=== PATIENT | male | born 1990 | race African-American/Black ===

== ENCOUNTER 2017-06-29 23:03 | Emergency (ER) | payer BC ==
[~2017-06-29] VITALS: Ht 200.7 cm; Wt 108.6 kg
[2017-06-29 23:52] LABS: BASOPHILS % (AUTO) 0.3 % (0-1); EOSINOPHILS # (AUTO) 0.2 X10'3 (0-0.9); EOSINOPHILS % (AUTO) 3.6 % (0-6); HEMATOCRIT 43.4 % (42.0-52.0); HEMOGLOBIN 14.8 g/dl (14.0-17.9); LYMPHOCYTES # (AUTO) 2.2 X10'3 (1.1-4.8); LYMPHOCYTES % (AUTO) 38.4 % (21-51); MEAN CORPUSCULAR VOLUME 97.1 FL (78-98); MEAN PLATELET VOLUME 8.9 FL (7.4-10.4); MONOCYTES # (AUTO) 0.5 X10'3 (0-0.9); MONOCYTES % (AUTO) 7.9 % (2-12); NEUTROPHILS # (AUTO) 2.9 X10'3 (1.8-7.7); NEUTROPHILS % (AUTO) 49.8 % (42-75); PLATELET COUNT 168 X10'3 (140-440); RED BLOOD COUNT 4.47 X10'6 (4.70-6.10); RED CELL DISTRIBUTION WIDTH 12.6 % (11.5-14.5); WHITE BLOOD COUNT 5.7 X10'3 (4.5-11.0)
[2017-06-30 00:04] LABS: PARTIAL THROMBOPLASTIN TIME 27 SECONDS (22-32); PROTHROMBIN TIME 10.5 SECONDS (9.0-12.0)
[2017-06-30 00:08] LABS: ALANINE AMINOTRANSFERASE 36 U/L (12-78); ALBUMIN/GLOBULIN RATIO 1.3 (1.1-1.5); ALKALINE PHOSPHATASE 114 IU/L (46-116); ANION GAP 5 (8-16); ASPARTATE AMINO TRANSFERASE 16 U/L (10-37); BILIRUBIN,TOTAL 0.6 MG/DL (0.1-1.0); BLOOD UREA NITROGEN 8 MG/DL (7-18); BUN/CREATININE RATIO 8.5 (5.4-32.0); CALCIUM 8.5 MG/DL (8.5-10.1); CHLORIDE 105 MMOL/L (99-107); CREATININE 0.94 MG/DL (0.60-1.10); GLUCOSE 122 MG/DL (70-104); POTASSIUM 3.5 MMOL/L (3.5-5.1); SODIUM 139 MMOL/L (135-145); TOTAL CARBON DIOXIDE 28.9 MMOL/L (24-32); eGFR > 90 ML/MIN
[2017-06-30 02:25] VITALS: BP 136/72
== END 2017-06-30 02:27 | disposition home or self-care (01) ==
LOC: ER 23:03
DX: R07.89 Other chest pain (principal); R00.2 Palpitations; R42 Dizziness and giddiness; F17.200 Nicotine dependence, unspecified, uncomplicated; F12.10 Cannabis abuse, uncomplicated; Z90.49 Acquired absence of other specified parts of digestive tract; Z91.013 Allergy to seafood; Z88.8 Allergy status to other drugs, medicaments and biological substances
CPT/HCPCS: 36415; 71045; 80053; 84484; 85025; 85610; 85730; 93005; 99285

== ENCOUNTER → 2018-02-20 | Emergency (ER) | payer BC ==
[~2018-02-20] VITALS: Ht 200.7 cm; Wt 104.5 kg
[2018-02-20 06:51] VITALS: BP 115/56
== END | disposition home or self-care (01) ==
LOC: ER 06:49
DX: M24.411 Recurrent dislocation, right shoulder (principal); F12.10 Cannabis abuse, uncomplicated; Z90.49 Acquired absence of other specified parts of digestive tract; Z88.8 Allergy status to other drugs, medicaments and biological substances; Z91.013 Allergy to seafood
CPT/HCPCS: 29105; 73020; 99283

== ENCOUNTER 2018-09-08 01:55 | Emergency (ER) | payer BC ==
[~2018-09-08] VITALS: Ht 200.7 cm; Wt 127.3 kg
[~2018-09-08 01:55] MED LIST: CEPH500C5 PO; HYDR-3965 PO
[2018-09-08 02:28] LABS: BASOPHILS % (AUTO) 0.4 % (0-1); EOSINOPHILS # (AUTO) 0.1 X10'3 (0-0.9); EOSINOPHILS % (AUTO) 2.6 % (0-6); HEMATOCRIT 41.3 % (42.0-52.0); LYMPHOCYTES # (AUTO) 2.2 X10'3 (1.1-4.8); LYMPHOCYTES % (AUTO) 38.7 % (21-51); MEAN CORPUSCULAR HEMOGLOBIN 32.7 PG (27.0-31.0); MEAN CORPUSCULAR HGB CONC 33.8 g/dL (33.0-36.5); MEAN CORPUSCULAR VOLUME 96.6 FL (78-98); MEAN PLATELET VOLUME 8.8 FL (7.4-10.4); MONOCYTES # (AUTO) 0.4 X10'3 (0-0.9); MONOCYTES % (AUTO) 6.9 % (2-12); NEUTROPHILS # (AUTO) 2.9 X10'3 (1.8-7.7); NEUTROPHILS % (AUTO) 51.4 % (42-75); PLATELET COUNT 202 X10'3 (140-440); RED BLOOD COUNT 4.27 X10'6 (4.70-6.10); RED CELL DISTRIBUTION WIDTH 12.5 % (11.5-14.5); WHITE BLOOD COUNT 5.6 X10'3 (4.5-11.0)
[2018-09-08 02:38] LABS: ALANINE AMINOTRANSFERASE 66 U/L (12-78); ALBUMIN 3.5 G/DL (3.4-5.0); ALBUMIN/GLOBULIN RATIO 1.2 (1.1-1.5); ALKALINE PHOSPHATASE 115 IU/L (46-116); ANION GAP 10 (8-16); ASPARTATE AMINO TRANSFERASE 32 U/L (10-37); BILIRUBIN,TOTAL 0.4 MG/DL (0.1-1.0); BLOOD UREA NITROGEN 19 MG/DL (7-18); BUN/CREATININE RATIO 15.4 (5.4-32.0); CALCIUM 8.9 MG/DL (8.5-10.1); CHLORIDE 103 MMOL/L (99-107); CREATININE 1.23 MG/DL (0.60-1.10); GLUCOSE 107 MG/DL (70-104); POTASSIUM 3.8 MMOL/L (3.5-5.1); SODIUM 139 MMOL/L (135-145); TOTAL CARBON DIOXIDE 26.3 MMOL/L (24-32); TOTAL PROTEIN 6.5 G/DL (6.4-8.2); eGFR 85 ML/MIN
[2018-09-08 02:41] LABS: PROTHROMBIN TIME 10.2 SECONDS (9.0-12.0)
[2018-09-08 02:42] LABS: PARTIAL THROMBOPLASTIN TIME 29 SECONDS (22-32)
[2018-09-08 03:22] LABS: C-REACTIVE PROTEIN 0.18 MG/DL (0.0-0.5)
[2018-09-08 03:47] LABS: MAGNESIUM 1.7 MG/DL (1.5-2.4)
[2018-09-08] MEDS ORDERED: nitroGLYCERIN 0.4mg/hour patch TD ONE (04:35)
--- NOTE | 2018-09-08 05:10 | NUR ---
PT STATES HE DOES NOT TAKE ANY MAINTENANCE MEDICATIONS
[2018-09-08 07:46] VITALS: BP 119/57
== END 2018-09-08 07:50 | disposition home or self-care (01) ==
LOC: ER 01:55
DX: R07.89 Other chest pain (principal); R94.31 Abnormal electrocardiogram [ECG] [EKG]; K21.9 Gastro-esophageal reflux disease without esophagitis; N28.9 Disorder of kidney and ureter, unspecified; F17.200 Nicotine dependence, unspecified, uncomplicated; F12.90 Cannabis use, unspecified, uncomplicated; Z90.49 Acquired absence of other specified parts of digestive tract; Z91.013 Allergy to seafood; Z88.8 Allergy status to other drugs, medicaments and biological substances; Z79.899 Other long term (current) drug therapy
CPT/HCPCS: 36415; 71045; 80053; 83735; 84484; 85025; 85610; 85651; 85730; 86140; 93005; 93306; 99284

== ENCOUNTER 2020-08-16 20:44 | Inpatient (IN) | payer BC ==
[~2020-08-16] VITALS: Ht 200.7 cm; Wt 150.0 kg
[2020-08-16 21:33] LABS: CLARITY,URINE CLEAR (Clear); COLOR,URINE YELLOW (Yellow); GLUCOSE, URINE NEGATIVE (Neg); KETONES,URINE NEGATIVE (Neg); LEUKOCYTE ESTERASE ,URINE NEGATIVE (Neg); NITRITES, URINE NEGATIVE (Neg); OCCULT BLOOD,URINE LARGE (Neg); PH,URINE 5.5 (4.8-8.0); PROTEIN,URINE 100 mg/dl (Neg); UROBILINOGEN,URINE 0.2 E.U/dL (0.2-1.0)
[2020-08-16 21:36] LABS: UA COLLECTION TYPE CLN CATCH MIDSTREAM
[2020-08-16 21:38] LABS: WBC,URINE 0-4 /HPF (0-4)
[2020-08-16 21:39] LABS: BACTERIA,URINE 1+ /HPF (Neg); SQUAMOUS EPITHELIAL CELL,UR FEW /LPF (FEW)
[2020-08-16] MEDS ORDERED: normal saline 1000ml 1,000 ML IV ONE (21:45)
[2020-08-16 22:08] LABS: BASOPHILS % (AUTO) 0.3 % (0-1); EOSINOPHILS # (AUTO) 0.2 X10'3 (0-0.9); EOSINOPHILS % (AUTO) 2.1 % (0-6); HEMATOCRIT 44.3 % (42.0-52.0); HEMOGLOBIN 15.2 g/dl (14.0-17.9); LYMPHOCYTES # (AUTO) 2.3 X10'3 (1.1-4.8); LYMPHOCYTES % (AUTO) 22.7 % (21-51); MEAN CORPUSCULAR HEMOGLOBIN 33.2 PG (27.0-31.0); MEAN CORPUSCULAR HGB CONC 34.3 g/dL (33.0-36.5); MEAN CORPUSCULAR VOLUME 96.6 FL (78-98); MEAN PLATELET VOLUME 9.3 FL (7.4-10.4); MONOCYTES # (AUTO) 0.6 X10'3 (0-0.9); MONOCYTES % (AUTO) 6.4 % (2-12); NEUTROPHILS # (AUTO) 6.8 X10'3 (1.8-7.7); NEUTROPHILS % (AUTO) 68.5 % (42-75); PLATELET COUNT 188 X10'3 (140-440); RED BLOOD COUNT 4.58 X10'6 (4.70-6.10); RED CELL DISTRIBUTION WIDTH 12.5 % (11.5-14.5)
[2020-08-16 22:27] LABS: ALANINE AMINOTRANSFERASE 383 U/L (12-78); ALBUMIN 3.9 G/DL (3.4-5.0); ALBUMIN/GLOBULIN RATIO 1.1 (1.1-1.5); ALKALINE PHOSPHATASE 122 IU/L (46-116); ANION GAP 8 (8-16); BILIRUBIN,TOTAL 0.8 MG/DL (0.1-1.0); BLOOD UREA NITROGEN 11 MG/DL (7-18); BUN/CREATININE RATIO 11.1 (5.4-32.0); CHLORIDE 102 MMOL/L (99-107); CREATININE 0.99 MG/DL (0.60-1.10); GLUCOSE 94 MG/DL (70-104); SODIUM 134 MMOL/L (135-145); TOTAL CARBON DIOXIDE 23.7 MMOL/L (24-32); TOTAL PROTEIN 7.4 G/DL (6.4-8.2); eGFR > 90 ML/MIN
[2020-08-16 22:32] LABS: POTASSIUM 4.2 MMOL/L (3.5-5.1)
[2020-08-16 22:33] LABS: ASPARTATE AMINO TRANSFERASE 1636 U/L (10-37)
[2020-08-16 23:20] LABS: CKMB RELATIVE INDEX 0.2 RATIO (0-2.5); CREATINE KINASE 47106 U/L (39-308)
[2020-08-16] MEDS ORDERED: normal saline 1000ML IV soln IVB ONE (23:35)
[2020-08-17] MEDS ORDERED: MELA5TAB12 PO (00:10)
[2020-08-17] MEDS ORDERED: SERT-153 PO (00:10)
[2020-08-17] MEDS ORDERED: Melatonin 3mg tablet PO ONE (01:35)
[2020-08-17] MEDS ORDERED: potassium Cl 40MEQ/1/2NS 520ml 520 ML IV PRN ×2 (01:40)
[2020-08-17] MEDS ORDERED: potassium Cl 20 mEq SR tablet PO PRN ×2 (01:40)
[2020-08-17] MEDS ORDERED: ondansetron/PF 4mg/2ml inj IV PRN (01:40)
[2020-08-17] MEDS ORDERED: mag hydrox/Alum hydrox/simeth 30ml oral suspension PO PRN (01:40)
[2020-08-17] MEDS ORDERED: acetaminophen 325mg tablet PO PRN (01:40)
[2020-08-17] MEDS: normal saline 1000ml 1,000 ML IV SCH ×3 (01:46→20:37)
--- NOTE | 2020-08-17 01:51 | NUR ---
GIVEN 2 SANDWICHES AND APPLESAUCE WELL ORDERED MELATONIN 3MG PO X1 DOSE NOW PER DR CARNEY VERBAL ORDER.
[2020-08-17] MEDS: sodium bicarbonate (8.4%) inj. 150 MEQ in dextrose 5%-water 1,000 ML IV SCH ×2 (02:17→14:14)
[2020-08-17 03:50] VITALS: BP 132/69
--- NOTE | 2020-08-17 03:50 | NUR ---
PATIENT ADMITTED TO ROOM 350B FROM ER FOR RHABDOMYOLYSIS. PLACED COMFORTABLE IN BED. VITAL SIGNS TAKEN AND RECORDED.
[2020-08-17] MEDS: HYDROcodone/acetaminophen 5mg/325mg tablet PO PRN ×2 (04:20→08:43)
--- NOTE | 2020-08-17 06:47 | NUR ---
Patient in room [facility]. I have received report from Oly Aldridge RN and had the opportunity to ask questions and assume patient care.
[2020-08-17 07:00] VITALS: BP 122/89
[2020-08-17 07:23] LABS: CREATINE KINASE 43826 U/L (39-308)
[2020-08-17] MEDS: sertraline 50mg tablet PO SCH (07:35)
[2020-08-17] MEDS: K and/or MAG REPLACEMENT MC SCH ×2 (07:41→20:00)
--- NOTE | 2020-08-17 07:49 | NUR ---
PAGER ID: [phone] MESSAGE: [facility]- Surg -[id number]- Aditya- 350Y- Patient here for Rhabdo and receiving norco 5. elevated liver enzymes and still painful. Can he get something else for pain?
--- NOTE | 2020-08-17 09:00 | NUR ---
Patient complaining of fast heart rhythm. Patient states that when I came in the room his heart rhythm went back to normal. Patient does have a history of anxiety and he states this has happened in the past. Current vitals BP 132/70 HR 71 Sats 97% RA RR 18 leg pain 8/10
--- NOTE | 2020-08-17 09:11 | NUR ---
PAGER ID: [phone] MESSAGE: [facility] -Surg- [id number]- Aditya -350B Patient complains of fast heart rate. current vitals BP- 132/70 HR-71. EKG done can I bring to you to sign off.
--- NOTE | 2020-08-17 09:50 | NUR ---
Received orders for repeat EKG, Faxe EKG to Dr Benito office, Echo and series of troponin.
[2020-08-17] MEDS ORDERED: SERT-432 PO (09:53)
[2020-08-17 11:00] VITALS: BP 119/63
--- NOTE | 2020-08-17 11:06 | NUR ---
Kayleigh SRINIVASAN with Dr Benito office rounded on patient.
[2020-08-17] MEDS: oxyCODONE IR 5mg (immed. release) tablet PO PRN ×2 (14:14→20:35)
--- NOTE | 2020-08-17 18:39 | NUR ---
Problems reprioritized. Patient report given, questions answered & plan of care reviewed with MASSIMO KEYS RN.
--- NOTE | 2020-08-17 18:40 | NUR ---
Patient in room [facility]. I have received report from CATHI LACY AND CHANDA RN and had the opportunity to ask questions and assume patient care.
[2020-08-17 20:06] VITALS: BP 141/58
[2020-08-17] MEDS: Melatonin 3mg tablet PO SCH (20:37)
[2020-08-18] VITALS: BP 120/67
[2020-08-18] MEDS: sodium bicarbonate (8.4%) inj. 150 MEQ in dextrose 5%-water 1,000 ML IV SCH (02:31)
[2020-08-18] MEDS: oxyCODONE IR 5mg (immed. release) tablet PO PRN ×2 (02:35→21:31)
[2020-08-18] MEDS: normal saline 1000ml 1,000 ML IV SCH ×3 (05:18→20:34)
[2020-08-18 06:04] LABS: BASOPHILS % (AUTO) 0.5 % (0-1); EOSINOPHILS # (AUTO) 0.1 X10'3 (0-0.9); EOSINOPHILS % (AUTO) 2.1 % (0-6); HEMATOCRIT 41.6 % (42.0-52.0); HEMOGLOBIN 14.1 g/dl (14.0-17.9); LYMPHOCYTES # (AUTO) 1.9 X10'3 (1.1-4.8); LYMPHOCYTES % (AUTO) 33.2 % (21-51); MEAN CORPUSCULAR HEMOGLOBIN 32.8 PG (27.0-31.0); MEAN CORPUSCULAR HGB CONC 33.8 g/dL (33.0-36.5); MEAN CORPUSCULAR VOLUME 97.1 FL (78-98); MEAN PLATELET VOLUME 9.3 FL (7.4-10.4); MONOCYTES # (AUTO) 0.5 X10'3 (0-0.9); MONOCYTES % (AUTO) 8.2 % (2-12); NEUTROPHILS # (AUTO) 3.2 X10'3 (1.8-7.7); PLATELET COUNT 165 X10'3 (140-440); RED BLOOD COUNT 4.29 X10'6 (4.70-6.10); RED CELL DISTRIBUTION WIDTH 12.4 % (11.5-14.5); WHITE BLOOD COUNT 5.6 X10'3 (4.5-11.0)
--- NOTE | 2020-08-18 06:15 | NUR ---
Problems reprioritized. Patient report given, questions answered & plan of care reviewed with CATHI LACY AND CHANDA LACY.
[2020-08-18 06:27] LABS: ALANINE AMINOTRANSFERASE 399 U/L (12-78); ALBUMIN 2.9 G/DL (3.4-5.0); ALKALINE PHOSPHATASE 96 IU/L (46-116); ANION GAP 1 (8-16); BILIRUBIN,TOTAL 0.5 MG/DL (0.1-1.0); BLOOD UREA NITROGEN 7 MG/DL (7-18); BUN/CREATININE RATIO 8.4 (5.4-32.0); CALCIUM 8.5 MG/DL (8.5-10.1); CHLORIDE 106 MMOL/L (99-107); CREATININE 0.83 MG/DL (0.60-1.10); GLUCOSE 102 MG/DL (70-104); POTASSIUM 3.7 MMOL/L (3.5-5.1); SODIUM 138 MMOL/L (135-145); TOTAL CARBON DIOXIDE 30.8 MMOL/L (24-32); TOTAL PROTEIN 5.9 G/DL (6.4-8.2); eGFR > 90 ML/MIN
[2020-08-18 06:30] LABS: ASPARTATE AMINO TRANSFERASE 1200 U/L (10-37)
--- NOTE | 2020-08-18 06:30 | NUR ---
Patient in room [facility]. I have received report from Oly Aldridge RN and had the opportunity to ask questions and assume patient care.
[2020-08-18 06:53] LABS: CREATINE KINASE 41901 U/L (39-308)
[2020-08-18 07:00] VITALS: BP 120/68
[2020-08-18] MEDS: sertraline 50mg tablet PO SCH (08:53)
[2020-08-18] MEDS: K and/or MAG REPLACEMENT MC SCH ×2 (08:53→20:00)
[2020-08-18] MEDS: morphine 4 MG/ML inj SYRINge IV PRN ×3 (09:29→17:56)
[2020-08-18 11:00] VITALS: BP 122/68
[2020-08-18 12:00] LABS: URINE AMPHETAMINE SCREEN NEGATIVE (Neg); URINE BARBITUATE SCREEN NEGATIVE (Neg); URINE BENZODIAZEPINES SCREEN NEGATIVE (Neg); URINE CANNABINOID SCREEN NEGATIVE (Neg); URINE COCAINE SCREEN NEGATIVE (Neg); URINE METHADONE SCREEN NEGATIVE (Neg); URINE OPIATE SCREEN POSITIVE (Neg); URINE PHENCYCLIDINE SCREEN NEGATIVE (Neg)
[2020-08-18 18:00] VITALS: BP 156/78
--- NOTE | 2020-08-18 18:30 | NUR ---
Patient in room [facility]. I have received report from Pilar LACY and had the opportunity to ask questions and assume patient care.
--- NOTE | 2020-08-18 18:37 | NUR ---
Problems reprioritized. Patient report given, questions answered & plan of care reviewed with Concha LACY.
--- NOTE | 2020-08-18 18:50 | NUR ---
PAGER ID: [phone] MESSAGE: Lab requires CBC Hemogram with Man Diff order. Can you please add that on to your order you put in for Johan Burgess. Thank you Herve LACY [phone]
[2020-08-18 19:02] LABS: BASOPHILS % (AUTO) 0.7 % (0-1); EOSINOPHILS # (AUTO) 0.2 X10'3 (0-0.9); EOSINOPHILS % (AUTO) 2.5 % (0-6); HEMATOCRIT 43.3 % (42.0-52.0); HEMOGLOBIN 14.4 g/dl (14.0-17.9); LYMPHOCYTES # (AUTO) 1.7 X10'3 (1.1-4.8); LYMPHOCYTES % (AUTO) 23.4 % (21-51); MEAN CORPUSCULAR HEMOGLOBIN 32.9 PG (27.0-31.0); MEAN CORPUSCULAR HGB CONC 33.4 g/dL (33.0-36.5); MEAN CORPUSCULAR VOLUME 98.4 FL (78-98); MEAN PLATELET VOLUME 9.3 FL (7.4-10.4); MONOCYTES # (AUTO) 0.5 X10'3 (0-0.9); MONOCYTES % (AUTO) 6.9 % (2-12); NEUTROPHILS # (AUTO) 4.8 X10'3 (1.8-7.7); NEUTROPHILS % (AUTO) 66.5 % (42-75); PLATELET COUNT 194 X10'3 (140-440); RED CELL DISTRIBUTION WIDTH 12.4 % (11.5-14.5); WHITE BLOOD COUNT 7.2 X10'3 (4.5-11.0)
--- NOTE | 2020-08-18 19:24 | NUR ---
PAGER ID: [phone] MESSAGE: Johan Burgess is requesting his pain medication to be changed as the medication he is on is not helping him. Thank you Herve LACY 1995
[2020-08-18] MEDS: Melatonin 3mg tablet PO SCH (20:33)
[2020-08-19] VITALS: BP 107/65
[2020-08-19] MEDS: oxyCODONE IR 5mg (immed. release) tablet PO PRN ×4 (03:18→20:56)
[2020-08-19] MEDS: normal saline 1000ml 1,000 ML IV SCH ×4 (03:21→23:20)
--- NOTE | 2020-08-19 06:27 | NUR ---
Problems reprioritized. Patient report given, questions answered & plan of care reviewed with Ana LACY.
--- NOTE | 2020-08-19 06:47 | NUR ---
Patient in room [facility]. I have received report from BAMBI Edgar and had the opportunity to ask questions and assume patient care.
[2020-08-19 07:22] LABS: BASOPHILS % (AUTO) 0.5 % (0-1); EOSINOPHILS # (AUTO) 0.1 X10'3 (0-0.9); EOSINOPHILS % (AUTO) 2.1 % (0-6); HEMATOCRIT 41.3 % (42.0-52.0); HEMOGLOBIN 13.9 g/dl (14.0-17.9); LYMPHOCYTES # (AUTO) 1.5 X10'3 (1.1-4.8); LYMPHOCYTES % (AUTO) 27.2 % (21-51); MEAN CORPUSCULAR HGB CONC 33.6 g/dL (33.0-36.5); MEAN CORPUSCULAR VOLUME 98.2 FL (78-98); MEAN PLATELET VOLUME 9.4 FL (7.4-10.4); MONOCYTES # (AUTO) 0.5 X10'3 (0-0.9); MONOCYTES % (AUTO) 9.3 % (2-12); NEUTROPHILS # (AUTO) 3.4 X10'3 (1.8-7.7); NEUTROPHILS % (AUTO) 60.9 % (42-75); PLATELET COUNT 171 X10'3 (140-440); RED CELL DISTRIBUTION WIDTH 12.3 % (11.5-14.5); WHITE BLOOD COUNT 5.6 X10'3 (4.5-11.0)
[2020-08-19] MEDS: sertraline 50mg tablet PO SCH (07:41)
[2020-08-19 08:00] VITALS: BP 116/56
[2020-08-19] MEDS: K and/or MAG REPLACEMENT MC SCH ×2 (08:00→19:46)
[2020-08-19 08:12] LABS: ALANINE AMINOTRANSFERASE 528 U/L (12-78); ALBUMIN 3.1 G/DL (3.4-5.0); ALKALINE PHOSPHATASE 99 IU/L (46-116); ANION GAP 5 (8-16); BILIRUBIN,TOTAL 0.6 MG/DL (0.1-1.0); BLOOD UREA NITROGEN 9 MG/DL (7-18); BUN/CREATININE RATIO 10.7 (5.4-32.0); CALCIUM 8.5 MG/DL (8.5-10.1); CHLORIDE 104 MMOL/L (99-107); CREATININE 0.84 MG/DL (0.60-1.10); GLUCOSE 88 MG/DL (70-104); POTASSIUM 3.9 MMOL/L (3.5-5.1); SODIUM 137 MMOL/L (135-145); TOTAL CARBON DIOXIDE 28.2 MMOL/L (24-32); TOTAL PROTEIN 6.3 G/DL (6.4-8.2); eGFR > 90 ML/MIN
[2020-08-19 08:15] LABS: ASPARTATE AMINO TRANSFERASE 1535 U/L (10-37)
[2020-08-19 10:31] LABS: CREATINE KINASE 50408 U/L (39-308)
[2020-08-19 11:00] VITALS: BP 135/75
[2020-08-19] MEDS: LORazepam 1 MG tablet PO PRN (17:23)
[2020-08-19 18:00] VITALS: BP 133/62
--- NOTE | 2020-08-19 18:51 | NUR ---
Problems reprioritized. Patient report given, questions answered & plan of care reviewed with BAMBI Fierro.
[2020-08-19] MEDS: magnesium hydroxide 30ml (MOM) UD suspension PO PRN (20:11)
[2020-08-19] MEDS: Melatonin 3mg tablet PO SCH (20:56)
[2020-08-20 00:05] VITALS: BP 141/71
[2020-08-20] MEDS: oxyCODONE IR 5mg (immed. release) tablet PO PRN ×4 (03:04→21:23)
[2020-08-20] MEDS: normal saline 1000ml 1,000 ML IV SCH ×5 (04:04→21:11)
--- NOTE | 2020-08-20 05:52 | NUR ---
Student documentation: I have reviewed and agree with all interventions, assessments performed and documented by Pilar Black Medication Administration: For this medication-pass time frame, all medication were reviewed, dispensed, administered and documented per hospital policy. Addendum: 08/20/20 at 0620 by Sri Chairez RN Amended: Links added.
[2020-08-20 05:56] LABS: BASOPHILS % (AUTO) 0.7 % (0-1); EOSINOPHILS # (AUTO) 0.2 X10'3 (0-0.9); EOSINOPHILS % (AUTO) 2.9 % (0-6); HEMATOCRIT 42.3 % (42.0-52.0); HEMOGLOBIN 14.1 g/dl (14.0-17.9); LYMPHOCYTES # (AUTO) 1.7 X10'3 (1.1-4.8); MEAN CORPUSCULAR HGB CONC 33.2 g/dL (33.0-36.5); MEAN CORPUSCULAR VOLUME 99.3 FL (78-98); MEAN PLATELET VOLUME 9.5 FL (7.4-10.4); MONOCYTES # (AUTO) 0.6 X10'3 (0-0.9); MONOCYTES % (AUTO) 9.8 % (2-12); NEUTROPHILS # (AUTO) 3.6 X10'3 (1.8-7.7); NEUTROPHILS % (AUTO) 58.6 % (42-75); PLATELET COUNT 172 X10'3 (140-440); RED BLOOD COUNT 4.27 X10'6 (4.70-6.10); RED CELL DISTRIBUTION WIDTH 12.5 % (11.5-14.5); WHITE BLOOD COUNT 6.2 X10'3 (4.5-11.0)
[2020-08-20 06:29] LABS: ALANINE AMINOTRANSFERASE 529 U/L (12-78); ALKALINE PHOSPHATASE 100 IU/L (46-116); ANION GAP 7 (8-16); BILIRUBIN,TOTAL 0.5 MG/DL (0.1-1.0); BLOOD UREA NITROGEN 11 MG/DL (7-18); BUN/CREATININE RATIO 11.6 (5.4-32.0); CALCIUM 8.3 MG/DL (8.5-10.1); CHLORIDE 106 MMOL/L (99-107); CREATININE 0.95 MG/DL (0.60-1.10); GLUCOSE 96 MG/DL (70-104); POTASSIUM 4.2 MMOL/L (3.5-5.1); SODIUM 140 MMOL/L (135-145); TOTAL CARBON DIOXIDE 27.1 MMOL/L (24-32); eGFR > 90 ML/MIN
[2020-08-20 06:53] LABS: ASPARTATE AMINO TRANSFERASE 1069 U/L (10-37)
[2020-08-20 07:10] LABS: CREATINE KINASE 27138 U/L (39-308)
[2020-08-20] MEDS: sertraline 50mg tablet PO SCH (07:30)
[2020-08-20] MEDS: K and/or MAG REPLACEMENT MC SCH ×2 (07:32→20:00)
[2020-08-20 07:40] VITALS: BP 111/67
[2020-08-20] MEDS: LORazepam 1 MG tablet PO PRN ×2 (10:39→19:21)
[2020-08-20 11:52] VITALS: BP 116/55
--- NOTE | 2020-08-20 18:20 | NUR ---
Patient in room [facility]. I have received report from Shania LACY and had the opportunity to ask questions and assume patient care.
--- NOTE | 2020-08-20 18:24 | NUR ---
Problems reprioritized. Patient report given, questions answered & plan of care reviewed with BAMBI Gonzalez.
[2020-08-20 19:00] VITALS: BP 119/57
--- NOTE | 2020-08-20 19:15 | NUR ---
DR. Lamb called. pt anxious about new possible diagnosis and pt wants to smoke. Dr. lamb increase ativan order. will continue to monitor.
[2020-08-20] MEDS: Melatonin 3mg tablet PO SCH (21:22)
[2020-08-21] VITALS: BP 139/64
[2020-08-21] MEDS: normal saline 1000ml 1,000 ML IV SCH ×5 (01:46→22:45)
[2020-08-21 05:39] LABS: BASOPHILS % (AUTO) 0.4 % (0-1); EOSINOPHILS # (AUTO) 0.2 X10'3 (0-0.9); EOSINOPHILS % (AUTO) 2.7 % (0-6); HEMATOCRIT 42.9 % (42.0-52.0); HEMOGLOBIN 14.5 g/dl (14.0-17.9); LYMPHOCYTES # (AUTO) 1.7 X10'3 (1.1-4.8); LYMPHOCYTES % (AUTO) 27.3 % (21-51); MEAN CORPUSCULAR HEMOGLOBIN 33.4 PG (27.0-31.0); MEAN CORPUSCULAR HGB CONC 33.8 g/dL (33.0-36.5); MEAN CORPUSCULAR VOLUME 98.8 FL (78-98); MEAN PLATELET VOLUME 9.2 FL (7.4-10.4); MONOCYTES # (AUTO) 0.6 X10'3 (0-0.9); MONOCYTES % (AUTO) 8.9 % (2-12); NEUTROPHILS # (AUTO) 3.8 X10'3 (1.8-7.7); NEUTROPHILS % (AUTO) 60.7 % (42-75); PLATELET COUNT 169 X10'3 (140-440); RED BLOOD COUNT 4.34 X10'6 (4.70-6.10); RED CELL DISTRIBUTION WIDTH 12.5 % (11.5-14.5); WHITE BLOOD COUNT 6.3 X10'3 (4.5-11.0)
[2020-08-21 06:14] LABS: ALANINE AMINOTRANSFERASE 497 U/L (12-78); ALBUMIN 3.1 G/DL (3.4-5.0); ALBUMIN/GLOBULIN RATIO 0.9 (1.1-1.5); ALKALINE PHOSPHATASE 103 IU/L (46-116); ANION GAP 7 (8-16); ASPARTATE AMINO TRANSFERASE 694 U/L (10-37); BILIRUBIN,TOTAL 0.4 MG/DL (0.1-1.0); BLOOD UREA NITROGEN 13 MG/DL (7-18); BUN/CREATININE RATIO 12.1 (5.4-32.0); CALCIUM 8.6 MG/DL (8.5-10.1); CHLORIDE 105 MMOL/L (99-107); CREATININE 1.07 MG/DL (0.60-1.10); GLUCOSE 92 MG/DL (70-104); POTASSIUM 4.2 MMOL/L (3.5-5.1); SODIUM 140 MMOL/L (135-145); TOTAL PROTEIN 6.4 G/DL (6.4-8.2); eGFR > 90 ML/MIN
[2020-08-21 07:06] LABS: CREATINE KINASE 16913 U/L (39-308)
[2020-08-21] MEDS: sertraline 50mg tablet PO SCH (07:23)
[2020-08-21] MEDS: K and/or MAG REPLACEMENT MC SCH ×2 (07:23→19:37)
[2020-08-21] MEDS: oxyCODONE IR 5mg (immed. release) tablet PO PRN ×3 (07:23→20:03)
[2020-08-21] MEDS: magnesium hydroxide 30ml (MOM) UD suspension PO PRN (07:24)
[2020-08-21 07:35] VITALS: BP 109/68
--- NOTE | 2020-08-21 08:28 | NUR ---
Patient reported he wanted to go to his car to get the cigarette and smoke. I told patient that this is a non-smoking facility and that if he leave the hospital building it is considered against medical advice which I do not recommend. I offered patient to get him an order for Nicotine patch, he refused instead he is asking for anti-anxiety medicine. Primary nurse Jayshree notified about this conversation with patient and the request for anti-anxiety medicine.
[2020-08-21] MEDS: LORazepam 1 MG tablet PO PRN ×3 (09:24→23:55)
[2020-08-21 11:29] VITALS: BP 128/65
--- NOTE | 2020-08-21 12:02 | NUR ---
PAGER ID: [phone] MESSAGE: Johan MARTINEZB: YOU MENTIONED THE SICKLE CELL PERIPHERAL SMEAR IN YOUR NOTES, I DONT SEE IT ORDERED...WOULD YOU LIKE IT ORDERED? THANKS! JOSEF [phone]
[2020-08-21] MEDS ORDERED: NICOTINE POLACRILEX 2 MG LOZENGE BC PRN (12:05)
--- NOTE | 2020-08-21 18:03 | NUR ---
Problems reprioritized. Patient report given, questions answered & plan of care reviewed with BAMBI Littlejohn.
--- NOTE | 2020-08-21 18:05 | NUR ---
Patient in room [facility]. I have received report from Jayshree LACY and had the opportunity to ask questions and assume patient care.
[2020-08-21 19:00] VITALS: BP 124/63
[2020-08-21] MEDS: Melatonin 3mg tablet PO SCH (20:03)
[2020-08-22] VITALS: BP 108/58
[2020-08-22] MEDS: normal saline 1000ml 1,000 ML IV SCH ×4 (04:27→19:45)
--- NOTE | 2020-08-22 06:10 | NUR ---
Problems reprioritized. Patient report given, questions answered & plan of care reviewed with Jayshree LACY.
[2020-08-22 06:13] LABS: BASOPHILS # (AUTO) 0.1 X10'3 (0-0.2); BASOPHILS % (AUTO) 0.9 % (0-1); EOSINOPHILS # (AUTO) 0.2 X10'3 (0-0.9); EOSINOPHILS % (AUTO) 3.1 % (0-6); HEMATOCRIT 42.1 % (42.0-52.0); HEMOGLOBIN 14.2 g/dl (14.0-17.9); LYMPHOCYTES # (AUTO) 1.5 X10'3 (1.1-4.8); LYMPHOCYTES % (AUTO) 25.1 % (21-51); MEAN CORPUSCULAR HEMOGLOBIN 33.3 PG (27.0-31.0); MEAN CORPUSCULAR HGB CONC 33.7 g/dL (33.0-36.5); MEAN PLATELET VOLUME 9.4 FL (7.4-10.4); MONOCYTES # (AUTO) 0.6 X10'3 (0-0.9); NEUTROPHILS # (AUTO) 3.8 X10'3 (1.8-7.7); NEUTROPHILS % (AUTO) 61.9 % (42-75); PLATELET COUNT 172 X10'3 (140-440); RED BLOOD COUNT 4.25 X10'6 (4.70-6.10); RED CELL DISTRIBUTION WIDTH 12.4 % (11.5-14.5); WHITE BLOOD COUNT 6.1 X10'3 (4.5-11.0)
[2020-08-22 06:41] LABS: ALANINE AMINOTRANSFERASE 416 U/L (12-78); ALBUMIN 3.1 G/DL (3.4-5.0); ALKALINE PHOSPHATASE 107 IU/L (46-116); ANION GAP 5 (8-16); ASPARTATE AMINO TRANSFERASE 413 U/L (10-37); BILIRUBIN,TOTAL 0.5 MG/DL (0.1-1.0); BLOOD UREA NITROGEN 10 MG/DL (7-18); BUN/CREATININE RATIO 10.8 (5.4-32.0); CALCIUM 8.8 MG/DL (8.5-10.1); CHLORIDE 105 MMOL/L (99-107); CREATININE 0.93 MG/DL (0.60-1.10); GLUCOSE 90 MG/DL (70-104); SODIUM 137 MMOL/L (135-145); TOTAL CARBON DIOXIDE 27.1 MMOL/L (24-32); TOTAL PROTEIN 6.3 G/DL (6.4-8.2); eGFR > 90 ML/MIN
[2020-08-22 07:27] VITALS: BP 116/44
[2020-08-22] MEDS: sertraline 50mg tablet PO SCH (07:31)
[2020-08-22] MEDS: oxyCODONE IR 5mg (immed. release) tablet PO PRN ×3 (07:33→19:53)
[2020-08-22] MEDS: K and/or MAG REPLACEMENT MC SCH ×2 (07:34→19:55)
[2020-08-22] MEDS: magnesium hydroxide 30ml (MOM) UD suspension PO PRN (07:37)
--- NOTE | 2020-08-22 08:27 | NUR ---
PAGER ID: [phone] MESSAGE: Johan NASHB: WOULD YOU LIKE TO ADD ON A CREATININE KINASE TO TODAYS LABS? THANKS! JOSEF [phone]
[2020-08-22] MEDS: LORazepam 1 MG tablet PO PRN ×3 (09:38→22:23)
[2020-08-22 09:45] LABS: CREATINE KINASE 7264 U/L (39-308)
[2020-08-22 11:46] VITALS: BP 128/84
--- NOTE | 2020-08-22 14:01 | NUR ---
Initial: Pt presented to ER with CPK of 47,000 and large blood in urine after high intensity workout and was admitted for rhabdomyolysis, per H&P. PO intake average 100% on regular diet, pt is meeting nutrient needs. Last BM documented 08/20, received PRN MoM 08/22. RD engineer internship visited pt and pt stated had 3 large BMs. Pt stated UBW 330 lbs, and no unintentional wt loss. Pt also stated usual diet at home with avoidance of beef and shellfish, but no strict regimen. No nutrition concerns at this time, will continue to follow. Recs: 1) Continue regular diet 2) Bowel care per Rx 3) Scaled wt per Rx Addendum: 08/22/20 at [address] Amended: Links added. Addendum: 08/22/20 at [address] PIERRE Ward
--- NOTE | 2020-08-22 14:50 | NUR ---
PAGER ID: [phone] MESSAGE: Johan MARTINEZB: PATIENT IS ASKING TO SEE YOU, HE SAYS THERE WAS SUPPOSED TO BE AN ADJUSTMENT OF HIS PAIN MEDS? THANKS! JOSEF [phone]
[2020-08-22] MEDS ORDERED: LORazepam 1 MG tablet PO PRN (14:55)
--- NOTE | 2020-08-22 18:09 | NUR ---
Problems reprioritized. Patient report given, questions answered & plan of care reviewed with BAMBI RIZO.
--- NOTE | 2020-08-22 18:50 | NUR ---
Patient in room [facility]. I have received report from ryan LACY and had the opportunity to ask questions and assume patient care.
[2020-08-22 19:41] VITALS: BP 134/65
[2020-08-22] MEDS: Melatonin 3mg tablet PO SCH (22:23)
[2020-08-23] VITALS: BP 111/63
[2020-08-23] MEDS: normal saline 1000ml 1,000 ML IV SCH ×5 (00:51→21:25)
[2020-08-23] MEDS: oxyCODONE IR 5mg (immed. release) tablet PO PRN ×3 (03:55→17:59)
[2020-08-23 06:43] LABS: CREATINE KINASE 3953 U/L (39-308)
--- NOTE | 2020-08-23 06:54 | NUR ---
Problems reprioritized. Patient report given, questions answered & plan of care reviewed with Mitzi LACY.
--- NOTE | 2020-08-23 07:05 | NUR ---
Patient in room [facility]. I have received report from BAMBI Littlejohn and had the opportunity to ask questions and assume patient care.
[2020-08-23 07:26] VITALS: BP 117/54
[2020-08-23] MEDS: K and/or MAG REPLACEMENT MC SCH ×2 (08:00→20:00)
[2020-08-23 08:41] LABS: ALANINE AMINOTRANSFERASE 361 U/L (12-78); ALBUMIN 3.1 G/DL (3.4-5.0); ALKALINE PHOSPHATASE 107 IU/L (46-116); ANION GAP 7 (8-16); ASPARTATE AMINO TRANSFERASE 250 U/L (10-37); BILIRUBIN,TOTAL 0.5 MG/DL (0.1-1.0); BLOOD UREA NITROGEN 11 MG/DL (7-18); BUN/CREATININE RATIO 11.8 (5.4-32.0); CALCIUM 8.5 MG/DL (8.5-10.1); CHLORIDE 104 MMOL/L (99-107); CREATININE 0.93 MG/DL (0.60-1.10); GLUCOSE 94 MG/DL (70-104); SODIUM 136 MMOL/L (135-145); TOTAL CARBON DIOXIDE 25.1 MMOL/L (24-32); TOTAL PROTEIN 6.2 G/DL (6.4-8.2); eGFR > 90 ML/MIN
[2020-08-23] MEDS: magnesium hydroxide 30ml (MOM) UD suspension PO PRN (08:59)
[2020-08-23] MEDS: sertraline 50mg tablet PO SCH (09:01)
[2020-08-23] MEDS: LORazepam 1 MG tablet PO PRN ×2 (09:07→16:38)
[2020-08-23 11:32] VITALS: BP 117/48
--- NOTE | 2020-08-23 12:03 | NUR ---
Contacted Dr Russell regarding patient complaint of rash on the inside of the elbows bilaterally. Small bumps and itching reported by patient. Patient also states he has eczema. Will continue to monitor. Leia Ferrell RN
[2020-08-23] MEDS ORDERED: temazepam 15mg capsule PO PRN (16:30)
[2020-08-23 18:00] VITALS: BP 146/68
--- NOTE | 2020-08-23 18:20 | NUR ---
Patient in room [facility]. I have received report from Mitzi LACY and had the opportunity to ask questions and assume patient care.
--- NOTE | 2020-08-23 18:26 | NUR ---
Problems reprioritized. Patient report given, questions answered & plan of care reviewed with Annetta LACY.
[2020-08-23] MEDS: Melatonin 3mg tablet PO SCH (21:00)
[2020-08-24] VITALS: BP 125/83
[2020-08-24] MEDS: oxyCODONE IR 5mg (immed. release) tablet PO PRN ×2 (00:36→07:17)
[2020-08-24] MEDS: normal saline 1000ml 1,000 ML IV SCH ×3 (00:36→07:19)
[2020-08-24] MEDS: LORazepam 1 MG tablet PO PRN (04:58)
[2020-08-24 06:20] LABS: BASOPHILS % (AUTO) 0.5 % (0-1); EOSINOPHILS # (AUTO) 0.2 X10'3 (0-0.9); HEMATOCRIT 39.8 % (42.0-52.0); HEMOGLOBIN 13.3 g/dl (14.0-17.9); LYMPHOCYTES # (AUTO) 1.8 X10'3 (1.1-4.8); LYMPHOCYTES % (AUTO) 27.3 % (21-51); MEAN CORPUSCULAR HEMOGLOBIN 33.1 PG (27.0-31.0); MEAN CORPUSCULAR HGB CONC 33.4 g/dL (33.0-36.5); MEAN CORPUSCULAR VOLUME 99.1 FL (78-98); MEAN PLATELET VOLUME 9.3 FL (7.4-10.4); MONOCYTES # (AUTO) 0.5 X10'3 (0-0.9); MONOCYTES % (AUTO) 8.5 % (2-12); NEUTROPHILS # (AUTO) 3.9 X10'3 (1.8-7.7); NEUTROPHILS % (AUTO) 60.7 % (42-75); PLATELET COUNT 168 X10'3 (140-440); RED BLOOD COUNT 4.01 X10'6 (4.70-6.10); RED CELL DISTRIBUTION WIDTH 12.5 % (11.5-14.5); WHITE BLOOD COUNT 6.5 X10'3 (4.5-11.0)
--- NOTE | 2020-08-24 06:20 | NUR ---
Problems reprioritized. Patient report given, questions answered & plan of care reviewed with Brennan LACY.
[2020-08-24 06:28] LABS: ALANINE AMINOTRANSFERASE 300 U/L (12-78); ALBUMIN 3.2 G/DL (3.4-5.0); ALKALINE PHOSPHATASE 108 IU/L (46-116); ANION GAP 6 (8-16); ASPARTATE AMINO TRANSFERASE 149 U/L (10-37); BILIRUBIN,TOTAL 0.5 MG/DL (0.1-1.0); BLOOD UREA NITROGEN 12 MG/DL (7-18); BUN/CREATININE RATIO 12.8 (5.4-32.0); CALCIUM 8.5 MG/DL (8.5-10.1); CHLORIDE 107 MMOL/L (99-107); CREATININE 0.94 MG/DL (0.60-1.10); GLUCOSE 98 MG/DL (70-104); POTASSIUM 3.9 MMOL/L (3.5-5.1); SODIUM 141 MMOL/L (135-145); TOTAL CARBON DIOXIDE 27.9 MMOL/L (24-32); TOTAL PROTEIN 6.3 G/DL (6.4-8.2); eGFR > 90 ML/MIN
--- NOTE | 2020-08-24 06:48 | NUR ---
Patient in room [facility]. I have received report from Annetta LACY and had the opportunity to ask questions and assume patient care.
[2020-08-24 07:00] VITALS: BP 101/56
[2020-08-24] MEDS: sertraline 50mg tablet PO SCH (07:16)
--- NOTE | 2020-08-24 07:21 | NUR ---
When I asked patient if he will have someone to drive and pick him up today in case he has discharge order, patient states "Oh, I have my car here!" Patient was advised to have someone else drive for him if he gets discharge today because he is receiving narcotic and ativan while in the hospital. I advised patient to make a plan about his ride for his safety and others safety when he goes home. Patient told me he will just call an [employer] to drive for him home if he discharge today then he will figure out how to get his car from the parking lot or come back later when he is "sober".
[2020-08-24] MEDS: K and/or MAG REPLACEMENT MC SCH (08:00)
[2020-08-24] MEDS: magnesium hydroxide 30ml (MOM) UD suspension PO PRN (10:21)
[2020-08-24 11:00] VITALS: BP 154/68
--- NOTE | 2020-08-24 11:20 | NUR ---
Discharge instructions given to patient, patient verbalized understanding of all instructions made. Peripheral IV catheter removed, tip intact. Instructed patient to ensure he has all his belongings with him before leaving. Yellow script for lab test to be done tomorrow was instructed and given to patient including work excuse note. Patient was advised to quit smoking. Patient walked down to the lobby, declined to be wheelchair out.
[2020-08-25 14:06] LABS: HBSAG SCREEN SEE COMMENTS
[2020-08-25 14:14] LABS: HEPATITIS C ANTIBODY SEE COMMENTS
[2020-08-25 14:27] LABS: HEP A AB, IGM SEE COMMENTS
== END 2020-08-24 11:15 | disposition home or self-care (01) | DRG 558 ==
LOC: ER 20:44 → ED HOLD 08-17 01:37 → SUR 3N 08-17 03:54
PROVIDERS: ADMIT Internal Medicine; ATTEND Family Medicine
DX: M62.82 Rhabdomyolysis (principal); D64.9 Anemia, unspecified; F17.210 Nicotine dependence, cigarettes, uncomplicated; F12.90 Cannabis use, unspecified, uncomplicated; F32.9 Major depressive disorder, single episode, unspecified; M79.604 Pain in right leg; K59.00 Constipation, unspecified; E66.9 Obesity, unspecified; M79.605 Pain in left leg; R31.9 Hematuria, unspecified; R74.01 Elevation of levels of liver transaminase levels; R74.8 Abnormal levels of other serum enzymes; Z91.041 Radiographic dye allergy status; Z91.013 Allergy to seafood; Z90.49 Acquired absence of other specified parts of digestive tract; Z79.899 Other long term (current) drug therapy; Z68.37 Body mass index [BMI] 37.0-37.9, adult; Z71.6 Tobacco abuse counseling
CPT/HCPCS: 36415; 76700; 80053; 80074; 80305; 81001; 82550; 82553; 83605; 84484; 85025; 87081; 93005; 93306; 93308; 99285; G0378; J2270; J7030

== ENCOUNTER 2021-11-27 20:26 | Emergency (ER) | payer BC ==
[~2021-11-27] VITALS: Ht 200.7 cm; Wt 150.0 kg
[~2021-11-27 20:26] MED LIST changes: -CEPH500C5 PO; -HYDR-3965 PO; +MELA5TAB12 PO; +SERT-432 PO
[2021-11-27 20:36] VITALS: BP 118/72
== END 2021-11-27 23:44 | disposition home or self-care (01) ==
LOC: ER 20:27
DX: R07.89 Other chest pain (principal); F41.9 Anxiety disorder, unspecified; F12.10 Cannabis abuse, uncomplicated; Z91.013 Allergy to seafood; Z88.8 Allergy status to other drugs, medicaments and biological substances; Z79.899 Other long term (current) drug therapy
CPT/HCPCS: 71045; 93005; 99283